=== PATIENT | male | born 1945 | race Caucasian/White ===

== ENCOUNTER 2020-05-02 00:29 | Outpatient (CLI) | payer MEDICARE, SELFPAY ==
[2020-05-02 19:01] LABS: SARS-CoV-2 RNA PCR Negative
== END 2020-05-02 00:30 | disposition home or self-care (01) ==
LOC: ANHCOVIDDT 00:30
PROVIDERS: PCP Nurse Practitioner Family; Visit Provider Internal Medicine Gastroenterology
DX: Z01.818 Encounter for other preprocedural examination (principal); Z11.59 Encounter for screening for other viral diseases
CPT/HCPCS: 87635; C9803; U0003

== ENCOUNTER 2020-05-04 03:21 | Day surgery (SDC) | payer MEDICARE, SELFPAY ==
[2020-04-27 13:26] VITALS: BMI 27.7
--- NOTE | 2020-05-04 06:49 | P.PNAN_ITS ---
Anes - Initial Pre Proc Eval Procedure: Operation Date: 05/04/20 08:00 Proposed Procedures p Screening Colonoscopy - Ameya Mcgarry MD Date/Time: 05/04/20 06:49 Surgeon: Ameya Mcgarry MD Pre Op Diagnosis: Neoplasm Screening Patient Data Age: 74 Gender: M Height: 5 ft 6 in Weight: 78 kg Allergies Allergy/AdvReac Type Severity Reaction Status Date / Time morphine Allergy Mild Confusion Verified 05/01/20 09:20 Home Medications Medication Instructions Recorded Confirmed Type cyclobenzaprine 10 mg tablet 10 mg PO TID 12/14/19 05/01/20 History diclofenac sodium 75 mg 75 mg PO BID 12/14/19 05/01/20 History tablet,delayed release rosuvastatin 10 mg tablet 10 mg PO DAILY 12/14/19 05/01/20 History pregabalin 150 mg PO TID 04/27/20 05/01/20 History Patient hx anesthesia problems: none Family hx anesthesia problems: none [facility] Past Medical History Medical History (Updated 05/04/20 @ 06:49 by Jaison Clayton MD) CAD (coronary artery disease) High cholesterol Surgical History Surgical History History of back surgery x4 pins and rods placed Family History Family History Mother Family history of malignant neoplasm of breast in first degree relative Other Family history of cardiovascular disease Social History Social History Smoking status: Former smoker Smoking end date: 10/19/83 Alcohol intake: current Substance use: never Gender identity (if verbalized by the patient): Male Anes - Eval Final PreProcedure Day of Procedure 05/04/20 06:49 Patient weight: overweight Heart: regular rate and rhythm Lungs: clear to auscultation Airway: Mallampati scale class II Neurological: alert and oriented Last oral intake: >/= 8 hours ASA classification: III Emergent: no Anesthetic plan: proceed Anesthesia type and monitoring: general GIVS and standard monitoring Informed Consent: The patient's anesthetic plan and its attendant risks and benefits were discussed with the patient/family/POA. Questions were solicited and answers provided to the satisfaction of the patient/family/POA.
[2020-05-04] MEDS: LACTATED RINGERS 1,000 ML 150 ML IV CONT (07:11)
[2020-05-04 07:13] VITALS: BP 122/74; PULSE 79; RESP 18; TEMP 36.1; O2SAT 100
--- NOTE | 2020-05-04 07:15 | PM.HPGS ---
History of Present Illness History of Present Illness Consent: Risks, benefits, and alternatives have been discussed and questions answered. Patient agrees to proceed with procedure. Chief complaint: Neoplasm Screening Narrative: Douglas Queen Jr. is a 74 year old male Here for screening colonoscopy. A recent colo guard test was positive PMF Past Medical History Medical History CAD (coronary artery disease) High cholesterol Surgical History Surgical History History of back surgery x4 pins and rods placed Family History Family History Mother Family history of malignant neoplasm of breast in first degree relative Other Family history of cardiovascular disease Social History Social History Smoking status: Former smoker Smoking end date: 10/19/83 Alcohol intake: current Substance use: never Gender identity (if verbalized by the patient): Male Meds Home Medications and Allergies Home Medications Medication Instructions Recorded Confirmed Type cyclobenzaprine 10 mg tablet 10 mg PO TID 12/14/19 05/01/20 History diclofenac sodium 75 mg 75 mg PO BID 12/14/19 05/01/20 History tablet,delayed release rosuvastatin 10 mg tablet 10 mg PO DAILY 12/14/19 05/01/20 History pregabalin 150 mg PO TID 04/27/20 05/01/20 History Allergies Allergy/AdvReac Type Severity Reaction Status Date / Time morphine Allergy Mild Confusion Verified 05/04/20 06:59 Vital Signs Vital Signs - 24 hr 05/04/20 07:13 Pulse Rate 79 Respiratory Rate 18 Blood Pressure 122/74 Pulse Oximetry 100 Exam Resp: Auscultation: clear to auscultation bilaterally Cardio: Rate: regular rate Rhythm: regular rhythm GI: GI Palp: Yes Soft to palpation and No Tenderness to palpation present (GI) Assessment and Plan Assessment and plan (1) Colon cancer screening: Code(s): Z12.11 - Encounter for screening for malignant neoplasm of colon Status: Acute Assessment and Plan: Colonoscopy with possible biopsy or polypectomy or cautery or injection of substances.
[2020-05-04 08:20] VITALS: BP 101/63; PULSE 58; RESP 18; O2SAT 98
[2020-05-04 08:30] VITALS: BP 115/70; PULSE 58; RESP 12; O2SAT 100
[2020-05-04 08:40] VITALS: BP 122/74; PULSE 57; RESP 16; O2SAT 100
== END 2020-05-04 08:47 | disposition home or self-care (01) ==
PROVIDERS: PCP Nurse Practitioner Family; Referring Provider Surgery; Visit Provider Internal Medicine Gastroenterology
PROC: 0DJD8ZZ Inspection of Lower Intestinal Tract, Via Natural or Artificial Opening Endoscopic (ICD-10-PCS; CPT 45378; principal; 2020-05-04 08:00)
DX: Z12.11 Encounter for screening for malignant neoplasm of colon (principal); K57.30 Diverticulosis of large intestine without perforation or abscess without bleeding; K64.8 Other hemorrhoids; R19.5 Other fecal abnormalities; I25.10 Atherosclerotic heart disease of native coronary artery without angina pectoris; E78.00 Pure hypercholesterolemia, unspecified; Z87.891 Personal history of nicotine dependence
CPT/HCPCS: G0121; J2704; J7120

== ENCOUNTER 2020-06-04 00:40 | Outpatient (CLI) | payer MEDICARE, SELFPAY ==
[2020-06-04 20:24] LABS: SARS-CoV-2 RNA PCR Negative
== END 2020-06-04 00:41 | disposition home or self-care (01) ==
LOC: ANHCOVIDDT 00:40
PROVIDERS: PCP Nurse Practitioner Family; Visit Provider Surgery
DX: Z01.812 Encounter for preprocedural laboratory examination (principal); Z20.828 Contact with and (suspected) exposure to other viral communicable diseases
CPT/HCPCS: 87635; C9803; U0003

== ENCOUNTER 2020-06-04 08:09 | Outpatient (CLI) | payer MEDICARE, SELFPAY ==
--- NOTE | 2020-06-04 08:11 | ECG_ITS ---
Measurements Intervals [place] Rate: 67 P: 40 FL: 151 QRS: 1 QRSD: 98 T: 26 QT: 375 QTc: 398 Interpretive Statements SINUS RHYTHM DELAYED PRECORDIAL R/S TRANSITION BORDERLINE ECG Electronically Signed On 06-04-2020 8:51:52 CDT by Ramon Newberry D.O.
== END 2020-06-04 08:10 | disposition home or self-care (01) ==
PROVIDERS: PCP Nurse Practitioner Family; Visit Provider Surgery
DX: E78.00 Pure hypercholesterolemia, unspecified (principal); K40.20 Bilateral inguinal hernia, without obstruction or gangrene, not specified as recurrent; Z01.812 Encounter for preprocedural laboratory examination; R94.31 Abnormal electrocardiogram [ECG] [EKG]
CPT/HCPCS: 36415; 86850; 86900; 86901; 87635; 93005; C9803; U0003

== ENCOUNTER 2020-06-06 00:16 | Day surgery (SDC) | payer MEDICARE, SELFPAY ==
[2020-05-16 11:04] VITALS: BMI 26.6
[2020-05-29 09:32] VITALS: BMI 26.6
[2020-06-06] VITALS (9 sets, daily range): BP systolic 127–138; BP diastolic 67–82; PULSE 59–80; RESP 12–18; TEMP 36.1–36.3; O2SAT 92–100
--- NOTE | 2020-06-06 10:58 | WPDANESEPPF ---
Anes - Initial Pre Proc Eval Procedure: Operation Date: 06/06/20 12:15 Proposed Procedures p Laparoscopic Bilateral Inguinal Hernia Repair With Mesh - Da Alvarado MD Date/Time: 06/06/20 10:58 Surgeon: Da Alvarado MD Pre Op Diagnosis: Bilateral Inguinal Hernia Patient Data Age: 74 Gender: M Height: 5 ft 7 in Weight: 75.3 kg Last Vital Signs Temp 97.2 F L 06/06/20 10:36 Pulse 59 L 06/06/20 10:36 Resp 14 06/06/20 10:36 BP 136/68 06/06/20 10:36 Pulse Ox 100 06/06/20 10:36 Allergies Allergy/AdvReac Type Severity Reaction Status Date / Time morphine Allergy Mild Confusion Verified 06/06/20 10:40 Home Medications Medication Instructions Recorded Confirmed Type cyclobenzaprine 10 mg tablet 10 mg PO TID 12/14/19 05/29/20 History diclofenac sodium 75 mg 75 mg PO BID 12/14/19 05/29/20 History tablet,delayed release rosuvastatin 10 mg tablet 10 mg PO DAILY 12/14/19 05/29/20 History pregabalin 150 mg PO TID 04/27/20 05/29/20 History aspirin [Adult Low Dose Aspirin] 81 mg PO DAILY 05/04/20 05/29/20 History biotin 2,500 mcg PO DAILY 05/16/20 05/29/20 History cholecalciferol (vitamin D3) 75 mcg PO BID 05/16/20 05/29/20 History cyanocobalamin (vitamin B-12) 1,000 mcg PO DAILY 05/16/20 05/29/20 History folic acid 1 mg PO DAILY 05/16/20 05/29/20 History garlic 1,000 mg PO DAILY 05/16/20 05/29/20 History multivitamin,wa-fdbp-nicokrxk 1 tablet PO DAILY 05/16/20 05/29/20 History [Complete Multivitamin] Patient hx anesthesia problems: none Family hx anesthesia problems: none PMFSH Past Medical History Medical History (Updated 06/06/20 @ 10:58 by Rodrick Somers MD) Arthritis CAD (coronary artery disease) has one stent in place High cholesterol Hyperlipidemia Peripheral neuropathy Surgical History Surgical History History of back surgery x4 pins and rods placed Social History Social History Smoking packs per day: 1 Smoking cigarettes per day: 20.0 Years smoked: 10 Smoking pack-years: 10.00 Smoking status: Former smoker Tobacco type: cigarettes Smoking end date: 10/19/83 Alcohol intake: current Drinks per week: 14 Alcohol use details: 2 BEERS DAILY Substance use: never Living arrangements: alone Gender identity (if verbalized by the patient): Male Spiritual care concerns: No Anes - Eval Final PreProcedure Day of Procedure 06/06/20 10:58 Patient weight: normal Heart: regular rate and rhythm Lungs: clear to auscultation Airway: Mallampati scale class III Neurological: alert and oriented Last oral intake: >/= 8 hours ASA classification: III Emergent: no Anesthetic plan: proceed Anesthesia type and monitoring: general LMA and standard monitoring Informed Consent: The patient's anesthetic plan and its attendant risks and benefits were discussed with the patient/family/POA. Questions were solicited and answers provided to the satisfaction of the patient/family/POA.
--- NOTE | 2020-06-06 11:00 | PM.HPGS ---
History of Present Illness History of Present Illness Consent: Risks, benefits, and alternatives of a laparoscopic totally extraperitoneal bilateral inguinal hernia repair have been discussed and questions answered. Patient agrees to proceed with procedure. Chief complaint: Bilateral Inguinal Hernia Narrative: Douglas Queen Jr. is a 74 year old male with a known right inguinal hernia. He was last seen in 12-14-19. He reports this is not painful but it has gotten larger and is more annoying. He reports that the right is worse then the left. He reports that when he does light work it causes a pulling pain. He is currently taking Miralax once a day and typically having good bowel movements. He denies problems with urination. He denies severe pain, fever, chills, or signs of incarceration. He reports the hernia does reduce once he lays down. He is now seen for surgical evaluation. Review of Systems Constitutional: Constitutional: Reports no additional constitutional complaints, Reports fatigue and Denies malaise Eyes: Eyes: Denies change in vision and Denies loss of vision ENT: Reports Normal hearing present, Denies change in voice, Denies dizziness, Denies hoarseness and Denies sore throat Cardiovascular: Cardiovascular: Denies chest pain, Denies leg edema and Denies dyspnea Respiratory: Respiratory: Denies cough, Denies dyspnea and Denies wheezing Gastrointestinal: Gastrointestinal: Denies hematochezia, Denies change in bowel habits, Denies heartburn and Reports other ( Bulging bilaterally in the inguinal areas) Genitourinary: Genitourinary: Denies urinary frequency and Denies urinary incontinence Neurologic: Reports Normal hearing present, Denies confusion, Denies dizziness, Denies loss of vision, Denies memory loss and Denies seizure-like activity Psychiatric: Psychiatric: Denies confusion, Denies depression and Denies memory loss Endocrine: Endocrine: Denies cold intolerance and Reports fatigue Hematologic/Lymphatic: Hematologic/Lymphatic: Denies easy bleeding and Denies easy bruising Allergic/Immunologic: Allergic/Immunologic: Denies wheezing PMFSH Past Medical History Medical History Arthritis CAD (coronary artery disease) has one stent in place High cholesterol Hyperlipidemia Peripheral neuropathy Surgical History Surgical History History of back surgery x4 pins and rods placed Family History Family History Mother Family history of malignant neoplasm of breast in first degree relative Other Family history of cardiovascular disease Social History Social History Smoking packs per day: 1 Smoking cigarettes per day: 20.0 Years smoked: 10 Smoking pack-years: 10.00 Smoking status: Former smoker Tobacco type: cigarettes Smoking end date: 10/19/83 Alcohol intake: current Drinks per week: 14 Alcohol use details: 2 BEERS DAILY Substance use: never Living arrangements: alone Gender identity (if verbalized by the patient): Male Spiritual care concerns: No Meds Home Medications and Allergies Home Medications Medication Instructions Recorded Confirmed Type cyclobenzaprine 10 mg tablet 10 mg PO HS 12/14/19 06/06/20 History diclofenac sodium 75 mg 75 mg PO BID 12/14/19 06/06/20 History tablet,delayed release rosuvastatin 10 mg tablet 10 mg PO DAILY 12/14/19 06/06/20 History pregabalin 150 mg PO TID 04/27/20 06/06/20 History aspirin [Adult Low Dose Aspirin] 81 mg PO DAILY 05/04/20 06/06/20 History biotin 2,500 mcg PO DAILY 05/16/20 06/06/20 History cholecalciferol (vitamin D3) 75 mcg PO BID 05/16/20 06/06/20 History cyanocobalamin (vitamin B-12) 1,000 mcg PO DAILY 05/16/20 06/06/20 History folic acid 1 mg PO DAILY 05/16/20 06/06/20 History garlic 1,000 m
[2020-06-06] MEDS: ACETAMINOPHEN 500 MG TABLET 1000 MG PO (11:01)
[2020-06-06] MEDS: LACTATED RINGERS 1,000 ML 30 ML IV CONT ×2 (11:21→15:05)
[2020-06-06] MEDS: KETOROLAC 15 MG/ML VIAL (*BKC) IV PUSH (11:21)
[2020-06-06] MEDS: BUPIVACAINE/EPINEPHRINE 0.5% 30 ML VIAL INFILTRATE (12:34)
[2020-06-06] MEDS: ceFAZolin 2 GM/D5W 50 ML 2 GM/50 ML BAG IVPB (12:34)
--- NOTE | 2020-06-06 14:41 | SUR.OPER ---
URINE:200cc
--- NOTE | 2020-06-06 14:51 | SUR.OPER ---
EBL:10cc
--- NOTE | 2020-06-06 14:58 | PM.PROC ---
Procedure Note - Detailed Date of procedure: 06/06/20 Pre-op diagnosis: Bilateral Inguinal Hernia Post-op diagnosis: other (Bilateral direct inguinal hernias) Procedure performed: totally extraperitoneal bilateral inguinal hernia repair with mesh Description of procedure: After appropriate marking of the operative site prior to surgery, the patient was taken to the operating room. After induction of adequate general endotracheal anesthesia by [facility] staff, the patient was carefully prepped and draped in a sterile fashion. Prior to the prep and drape a Bhatt catheter was placed. A timeout was performed confirming the procedure and site of surgery on the bilateral inguinal hernias. Following this, local anesthetic was infiltrated into the umbilical area and a vertical incision was made just below the umbilicus. I carefully dissected down to the the anterior rectus sheath on the right and then made a 1 cm vertical slit in the fascia just off the midline. The rectus muscle was retracted to right and then just in front of the posterior rectus sheath, a dissecting balloon was passed onto the pubic bone. Without applying any pressure on the groin areas, this was insufflated with 40 pumps, while watching with the 0 degree laparoscope. It appeared that I was in the proper plane. Following this, the dissecting balloon was removed and the doughnut shaped conforming balloon was inflated with 40 cc of air and pulled back and the ring secured at the umbilicus to allow for insufflation of CO2 gas. Following this, the 0 degree laparoscope was used to carefully place two 5mm trocars in the midline. One suprapubic and other one nursing home between the umbilicus and the pubic bone. Tedious dissection then occurred in the preperitoneal space exposing the Juventino's ligament, the cord structures, the muscular tissue anteriorly, and the retroperitoneum on both sides. On both sides we saw that there were direct hernias which had pseudo sacs. These were dissected out and tacked to the anterior abdominal wall by pulling them toward the midline and using the secure tack absorbable stapler. Retroperitoneum was dissected back to the level of the umbilicus both anteriorly and posteriorly I did get a small hole in the peritoneum on the patient's right. This was then able to be dissected back and we could visualize the posterior peritoneum. I then dissected up to the level of the umbilicus and it was ready for mesh placement. After carefully confirming all sites and that the mesh would cover the direct space, I carefully rolled the Left 3D Max mesh and slid this through the 12 mm trocar at the umbilical level down into the preperitoneal space. This unfurled nicely and sat nicely against the left groin structures. It nicely covered all spaces and it went back nicely into the preperitoneal space along the anterior-superior iliac spine. I took a picture of it carefully, which showed that the mesh will cover the preperitoneal groin well, and had come down to the posterior border of the peritoneum. Following this the same procedure was done on the patient's right after told him slightly toward the left. The 2 pieces of mesh were found to overlap a little bit in the midline over the pubic bone which was okay with me. On each side 2 tacks were placed into Juventino's ligament. No tacks were placed anteriorly on the left 1 tack was placed between through the mesh into the anterior abdominal wall musculature both medial and lateral to the epigastric vessels on the right. Following this we took another picture looking straight into the pelvis which showed both pieces of mesh nicely aligned against the groin areas covering all 3 spaces on each side including the indirect direct and femoral spaces. Once this was accomplished, I took the patient out of Trendelenburg position, rotated the patient back even, and then observed using a dissector through the higher 5 mm trocar to keep the mesh pushe
== END 2020-06-06 17:46 | disposition home or self-care (01) ==
PROVIDERS: PCP Nurse Practitioner Family; Visit Provider Surgery
PROC: (CPT 49650; principal; 2020-06-06 12:15)
DX: K40.20 Bilateral inguinal hernia, without obstruction or gangrene, not specified as recurrent (principal); I25.10 Atherosclerotic heart disease of native coronary artery without angina pectoris; E78.00 Pure hypercholesterolemia, unspecified; E78.5 Hyperlipidemia, unspecified; G62.9 Polyneuropathy, unspecified; Z79.82 Long term (current) use of aspirin; Z87.891 Personal history of nicotine dependence
CPT/HCPCS: 49505; A9270; C1727; C1781; J0690; J1100; J1885; J2250; J2370; J2405; J2704; J2710; J3010; J7120

== ENCOUNTER 2022-09-09 09:19 | Outpatient (CLI) | payer MEDICARE, SELFPAY ==
--- NOTE | 2022-09-09 | ECG_ITS ---
Measurements Intervals [place] Rate: 69 P: 43 MO: 146 QRS: -9 QRSD: 95 T: 12 QT: 367 QTc: 393 Interpretive Statements SINUS RHYTHM NORMAL ECG COMPARED TO ECG 06/04/2020 08:45:36 NO SIGNIFICANT CHANGES Electronically Signed On 09-09-2022 14:01:17 [employer] by Ramon Newberry D.O.
[2022-09-09 09:52] LABS: Hematocrit 38.3 % (42.0-52.0); Hemoglobin 12.5 g/dL (14.0-18.0)
[2022-09-09 10:02] LABS: Urine Cotinine NEGATIVE
[2022-09-09 10:04] LABS: Albumin Level 4.3 g/dL (3.5-5.1); Estimated Glomerular Filt Rate > 60; Glucose 92 mg/dL (65-110)
[2022-09-09 10:41] LABS: Hemoglobin A1C 5.5 % (<5.7)
== END 2022-09-09 09:20 | disposition home or self-care (01) ==
LOC: ANHLAB 09:24
PROVIDERS: PCP Nurse Practitioner Family; Visit Provider Orthopaedic Surgery
DX: E78.5 Hyperlipidemia, unspecified (principal); I25.10 Atherosclerotic heart disease of native coronary artery without angina pectoris; Z79.899 Other long term (current) drug therapy
CPT/HCPCS: 80307; 82040; 82565; 82947; 83036; 85014; 85018; 93005

== ENCOUNTER 2022-09-15 15:58 | Outpatient (CLI) | payer MEDICARE, SELFPAY ==
--- NOTE | ~2022-09-15 | CT_ITS ---
CORRECTED REPORT ADDED CT LE LT wo con to examination This report was recreated on 09/18/2022. Original report was CHECKER 09/18/2022 [facility] EXAMINATION: CT LE RT wo con and CT LE LT wo con DATE: 09/15/2022 17:20 INDICATION: Right knee osteoarthritis. TECHNIQUE: Computed tomography (CT) of the right lower limb was performed without intravenous contrast. Automated exposure control and iterative reconstruction technique were employed. The dose-length product was 1854.74 mGy- cm. COMPARISON: Right knee radiographs 09/05/2022 FINDINGS: There is moderate right hip osteoarthritis. The right knee demonstrates severe osteoarthritis of the medial compartment, mild osteoarthritis of lateral compartment, and moderate osteoarthritis of the patellofemoral compartment. There is a small knee joint effusion. There is a moderate-sized Rushing's cyst with loose bodies. There is an osteochondroma of the posterior medial aspect of proximal tibia directed inferiorly measuring 4.8 x 1.5 x 2.1 cm. There is moderate left hip osteoarthritis. Left knee demonstrates severe osteoarthritis of the lateral compartment and moderate osteoarthritis of medial and patellofemoral compartments. There is a moderate-sized knee joint effusion with loose bodies. There are loose bodies in the popliteus recess. There is a large Rushing's cyst with loose bodies. IMPRESSION: 1. 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 2. 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 3. Moderate-sized left knee joint effusion with loose bodies. 4. 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 Reviewed, dictated and finalized at location A. CHECKER MTDD
== END 2022-09-15 15:59 | disposition home or self-care (01) ==
PROVIDERS: PCP Nurse Practitioner Family; Visit Provider Orthopaedic Surgery
DX: M17.11 Unilateral primary osteoarthritis, right knee (principal); M25.461 Effusion, right knee; M23.41 Loose body in knee, right knee; M71.21 Synovial cyst of popliteal space [Baker], right knee
CPT/HCPCS: 73700

== ENCOUNTER 2022-11-05 11:29 | Outpatient (CLI) | payer MEDICARE, SELFPAY ==
[2022-11-05 13:06] LABS: Basophils Absolute Auto 0.1 K/mm3 (0.0-0.1); Basophils Percent Auto 1.2 % (0.2-1.2); Eosinophils Absolute Auto 0.5 K/mm3 (0-0.3); Eosinophils Percent Auto 7.5 % (0-4.4); Hematocrit 40.8 % (42.0-52.0); Hemoglobin 13.2 g/dL (14.0-18.0); Immature Granulocyte Absolute 0.01 K/mm3 (0.00-0.031); Immature Granulocyte Percent A 0.2 % (0-0.5); Lymphocytes Percent Auto 26.2 % (18.3-44.2); Mean Corpuscular HGB Conc 32.4 g/dl (32-36); Mean Corpuscular Hemoglobin 30.4 pg (26-34); Mean Platelet Volume 10.3 fl (7.4-10.4); Monocytes Absolute Auto 0.6 K/mm3 (0.1-0.6); Monocytes Percent Auto 8.9 % (2.6-8.5); Neutrophils Absolute Auto 3.6 K/mm3 (1.3-6.7); Platelet Count Result 221 k/mm3 (150-375); Red Blood Count 4.34 M/mm3 (4.6-6.20); Red Cell Distribution Width 13.9 % (11.5-14.5); White Blood Count 6.5 K/mm3 (4.5-10.0)
[2022-11-05 13:13] LABS: Urine Cotinine NEGATIVE
[2022-11-05 13:14] LABS: Albumin Level 4.8 g/dL (3.5-5.1); Estimated Glomerular Filt Rate 49; Glucose 93 mg/dL (65-110)
== END 2022-11-05 11:30 | disposition home or self-care (01) ==
PROVIDERS: PCP Nurse Practitioner Family; Visit Provider Orthopaedic Surgery
DX: M17.11 Unilateral primary osteoarthritis, right knee (principal); Z01.818 Encounter for other preprocedural examination
CPT/HCPCS: 80307; 82040; 82565; 82947; 85025; 87081

== ENCOUNTER 2022-12-02 15:07 | Observation (INO) | payer MEDICARE, SELFPAY ==
[2022-11-05 11:48] VITALS: BP 157/78; PULSE 65; RESP 16; TEMP 36.8; O2SAT 95; BMI 29.1
--- NOTE | 2022-11-05 12:04 | PC.NURSE ---
Report to the Outpatient Waiting Room, entrance under the green pavilion located off [facility], at time __10:00AM on date __12/01/22 . Planned Procedure Time: __12:00PM . Time changes happen often and if your time is changed the preop area will call you the afternoon before. - You and your visitor will be asked to self-screen and do not enter if you have any COVID symptoms. - Only one visitor is requested with a max of two and NO children visitors are allowed at this time. - The patient visitor may be requested to leave or wait in car when not with patient due to distancing restrictions. - A mask is optional within the hospital. Patients may have clear liquids (water, carbonated beverages, clear teas, apple juice) until 3 hours prior to surgery with a maximum of 20 ounces. - No food from midnight until time of surgery Take the following medications with a SIP of water the morning of surgery: ___PREGABALIN, TIZANIDINE, TRAMADOL- ALL NEEDED___ Medications to discontinue per physician __HOLD DICLOFENAC- 7 DAYS PRE-OP- LAST DOSE-11/24/22, HOLD ALL VITAMINS/SUPPLEMENTS -3 DAYS 11/27/22_ Please no make-up, nail samoan, hairspray, perfume, deodorant, or body powder the day of surgery. No jewelry (including any body piercings) or valuables the day of surgery, leave them at home. Please take a shower or bath the night before, or the morning of, surgery with an antibacterial soap. Wear comfortable, loose fitting clothing. Children are encouraged to wear pajamas. - Jewelry must be removed prior to entering the operating room. Rings and piercings that are not removed may be cut off. - The hospital will not accept responsibility for valuables. - Please leave all valuables, including medications, at home the day of surgery. If you are going home after surgery, a licensed grain combine driver must drive you home. - NO public transportation without another adult if you receive anesthesia. - We recommend that an adult stay with you for 24 hours following discharge. - We also recommend that you do not drive, make important decision, drink alcoholic beverages, or take any drugs that were not prescribed by your health care provider for at least 24 hours after your discharge time. Follow any additional instructions given to you from your surgeon. If you or anyone in your household have experienced Covid symptoms in the past week, please notify your surgeon or the nurse liaison at the phone number below for possible testing. Telephone instructions given to __PATIENT and asked if any additional questions and then verbalized understanding. Patient advised to call surgeon office or pre surgery nurse liaison [phone] if any additional questions.
[2022-12-01] VITALS (13 sets, daily range): BP systolic 111–146; BP diastolic 62–90; PULSE 83–108; RESP 10–20; TEMP 36.1–36.6; O2SAT 92–100
[2022-12-01] MEDS: ACETAMINOPHEN 500 MG TABLET 1000 MG PO (09:58)
[2022-12-01] MEDS: LACTATED RINGERS 1,000 ML 30 ML IV CONT ×2 (11:10→15:00)
--- NOTE | 2022-12-01 11:24 | WPDANESEPPF ---
Anes - Initial Pre Proc Eval Procedure: Operation Date: 12/01/22 12:00 Proposed Procedures p Right Custom Total Knee Arthroplasty - Norberto Craft MD Date/Time: 12/01/22 11:24 Surgeon: Norberto Craft MD Pre Op Diagnosis: Prim OA Right Knee Patient Data Age: 77 Gender: M Height: 1.68 m Weight: 78.1 kg Last Vital Signs Temp 36.6 C 12/01/22 11:03 Pulse 84 12/01/22 11:03 Resp 16 12/01/22 11:03 BP 139/74 12/01/22 11:03 Pulse Ox 98 12/01/22 11:03 O2 Del Method Room Air 12/01/22 11:03 Allergies Allergy/AdvReac Type Severity Reaction Status Date / Time morphine AdvReac Mild Confusion Verified 12/01/22 09:52 Home Medications Medication Instructions Recorded Confirmed Type diclofenac sodium 75 mg 75 mg PO BID 12/14/19 12/01/22 History tablet,delayed release rosuvastatin 10 mg tablet (Crestor) 10 mg PO DAILY 12/14/19 12/01/22 History hydroxychloroquine 200 mg tablet 200 mg PO BID 08/19/22 12/01/22 History aspirin 81 mg tablet,delayed 81 mg PO DAILY 11/05/22 12/01/22 History release cholecalciferol (vitamin D3) 125 125 mcg PO DAILY 11/05/22 12/01/22 History mcg (5,000 unit) capsule magnesium oxide 420 mg tablet 420 mg PO BID 11/05/22 12/01/22 History pregabalin 300 mg capsule 300 mg PO BID 11/05/22 12/01/22 History tizanidine 4 mg capsule 4 mg PO Q8H PRN Pain 11/05/22 12/01/22 History tramadol 50 mg tablet 50 mg PO Q12-24H PRN Pain 11/05/22 12/01/22 History zinc 25 mg tablet 25 mg PO DAILY 11/05/22 12/01/22 History Patient hx anesthesia problems: none Family hx anesthesia problems: none Results Review: All pre-operative results and documents have been reviewed as part of the pre-operative evaluation. [facility] Past Medical History Medical History Arthritis (Unknown) CAD (coronary artery disease) has one stent in place High cholesterol Hyperlipidemia (Unknown) Lumbar spondylosis with myelopathy Peripheral neuropathy Rheumatoid arthritis Surgical History Surgical History H/O hernia repair 06/06/2020 History of back surgery x4 pins and rods placed Family History Family History Mother Family history of malignant neoplasm of breast in first degree relative Other Family history of cardiovascular disease Social History Social History Smoking packs per day: 1 Smoking cigarettes per day: 20.0 Years smoked: 19 Smoking pack-years: 19.00 Smoking status: Former smoker Tobacco type: cigarettes Smoking end date: 04/18/85 Alcohol intake: current Drinks per week: 14 Alcohol use details: 2 BEERS DAILY Substance use: never Lack of Transportation: No Lack of Food: Never True Current Housing: I Have Housing Concerned About Future Housing: No Difficulty Paying Gas/Electric Bills: No Difficulty Paying for Meds: No Currently Unemployed: No Education: Associate Degree Difficulty w/ Childcare or Family Care: YES Living arrangements: alone Occupation/Education: retired Gender identity (if verbalized by the patient): Male Spiritual care concerns: No Anes - Eval Final PreProcedure Day of Procedure 12/01/22 11:24 Patient weight: overweight Heart: regular rate and rhythm Lungs: clear to auscultation Airway: Mallampati scale class II Neurological: alert and oriented Last oral intake: >/= 8 hours ASA classification: III Emergent: no Anesthetic plan: proceed Anesthesia type and monitoring: general LMA and standard monitoring Results Review: All pre-operative results and documents have been reviewed as part of the pre-operative evaluation. Informed Consent: The patient's anesthetic plan and its attendant risks and benefits were discussed with the patient/family/POA. Questions were solicited and answer
--- NOTE | 2022-12-01 11:49 | WPDHPUPDATE1 ---
History and Physical Update Update Date/Time: 12/01/22 11:49 History and Physical has been reviewed, including an updated exam of the patient. There are NO changes in the patient's condition. Risks, benefits, and alternatives have been discussed and questions answered. Patient agrees to proceed with procedure.
--- NOTE | 2022-12-01 12:06 | WPDANESPNB ---
Anes - Peripheral Nerve Block Date/Time: 12/01/22 12:06 I have discussed with the patient/family/POA the placement of a peripheral nerve block for post-operative pain management, including associated risks, benefits, complications, and side effects. Alternative methods of post-operative analgesia were detailed. Questions were solicited and answers provided to the satisfaction of the patient/family/POA. Time-Out: A pre-procedural Time-Out was completed immediately before starting the procedure and confirmed: Patient Identification, Site, Procedure, Patient Position and the Availability of Requisite Equipment. Clinical Indications: Acute post-operative pain management requested by the operative surgeon. Nerve Block Insertion Note Anes-nerve block: femoral right Patient position: supine Skin prep: chlorhexidine Needle: 22 gauge, stimulating, insulated echogenic needle. Needle length: 50 mm Technique: nerve stimulation lost at (mA) (0.35) Injectate: bupivacaine 0.5% with epi 5 mcg/ml (20 cc) Observations: tolerated well Complications: none Procedure start time:: 1200 Procedure end time:: 1204
[2022-12-01] MEDS: ceFAZolin 2 GM/D5W 50 ML 2 GM/50 ML BAG IVPB ×2 (12:09→20:19)
[2022-12-01] MEDS: GENTAMICIN BONE CEMENT REFOBACIN 1 EACH TOPICAL (14:03)
[2022-12-01] MEDS: fentaNYL CITRATE INJ (*CRX) 100 MCG/2 ML VIAL 25 MCG IV PUSH ×2 (16:04→16:06)
--- NOTE | 2022-12-01 17:17 | P.OP_ITS ---
Procedure Note - Detailed Date of Procedure 12/01/22 Pre-op Diagnosis Degenerative arthritis right knee. Post-op Diagnosis Same Procedure Performed Total knee arthroplasty, right knee Surgeon Norberto Craft MD [employer] Control Systems Engineer Sherry Darby PA-C Anesthesia General and Regional (Subsartorial block.) Findings Advanced degenerative changes in all 3 compartments most pronounced medially. Significant medial contracture with moderate medial release required. Bone resections according to the preoperative planning software. Description of Procedure Preoperative antibiotics were given. The limb was prepped and draped in the usual sterile fashion with a well-padded tourniquet high on the thigh. The limb was exsanguinated and the tourniquet inflated to 300 mmHg. A longitudinal incision was created just medial to the patella. A trivector approach to the knee was performed. Arthrotomy was taken down through the joint capsule. No significant releases were initially taken. The femur was exposed and the F1 jig was applied. The coring tool was used to remove the cartilage for the F2 jig to sit flush with the bone. The jig was pinned and the distal cut carefully taken. Caliper measurements confirmed appropriate bony resections according to the preoperative templated plan. The F4 cutting jig for the femur was applied, at the standard rotation. The AP and anterior chamfer cuts were taken. The F5 jig was applied and the posterior chamfer cuts were taken. The box cut was next performed. The anterior and posterior cruciate ligaments were resected. The tibia was prepared using the T1 jig, after removing cartilage for the jig contact points. Proper alignment was checked with the alignment zenobia. The tibia was cut using the T1u guide. Gap balancing was performed. Gap measurements were taken and the knee was trialed. Excellent alignment and soft tissue balancing was confirmed. The patella was quite healthy in appearance. Small periferal osteophytes were removed. Meniscal remnants were removed. The trial components were assembled. Excellent range of motion and proper soft tissue balancing were confirmed throughout the full range of motion. Patellar tracking was excellent. The knee was copiously irrigated periodically throughout the procedure. The real implants were cemented into position. Excess cement was carefully removed. The wound was closed in layers with interrupted #1 Vicryl suture, 2-0 strata fix suture, 0 strata fix suture, 2-0 strata fix suture. Steri-Strips placed on the skin with the knee flexed. Sterile bulky dressing applied. The patient was brought to the recovery room in stable condition. There were no complications. Physician certified registered dental assistant, Sherry Darby PA-C, required for surgery; including patient positioning, draping, tissue retraction, maintaining instrument position, cement removal, wound closure, and dressing placement. Implants Conformis Imprint total knee arthroplasty. Cemented. Posterior stabilized. 10mm insert. Estimated Blood Loss -50.0 Tourniquet Time 80 Drains No Complications No immediate complications Condition Stable Disposition PACU [facility] Billing Surgery - Charge Forward: Surgery Billing
[2022-12-01] MEDS: SODIUM CHLORIDE 0.9% IV 1,000 ML 125 ML IV CONT (17:55)
[2022-12-01] MEDS: DICLOFENAC SOD 75 MG TABLET.EC PO (17:56)
[2022-12-01] MEDS: SENNA/DOCUSATE SODIUM TABLET 2 TAB PO (17:56)
[2022-12-01] MEDS: HYDROXYCHLOROQUINE SULFATE 200 MG TABLET PO (17:56)
[2022-12-01] MEDS: ASPIRIN 81 MG ENTERIC TABLET PO (17:57)
[2022-12-01] MEDS: oxyCODONE HCL (*CRX) 5 MG TAB IR 10 MG PO (18:16)
[2022-12-01] MEDS: MAGNESIUM OXIDE 400 MG TABLET PO (20:19)
[2022-12-01] MEDS: PREGABALIN (*CRX) 75 MG CAPSULE 300 MG PO (21:58)
--- NOTE | ~2022-12-02 | XR_ITS ---
EXAMINATION: XR knee RT 2V DATE: 12/01/2022 15:11 INDICATION: Total right knee arthroplasty. Postop. TECHNIQUE: 2 views of right knee were obtained. COMPARISON: Right knee radiographs 12/07/2012 FINDINGS: There is a total right knee arthroplasty without patellar resurfacing in near-anatomic alig nment. No fracture. There is a tiny osteophyte of the patella. There is gas in the knee joint and sof t tissues, consistent with recent surgery. IMPRESSION: 1. Total right knee arthroplasty in near-anatomic alignment. Reviewed, dictated and finalized at location A. UMER MARKETING MANAGER
[2022-12-02] MEDS: ceFAZolin 2 GM/D5W 50 ML 2 GM/50 ML BAG IVPB ×2 (03:18→12:46)
[2022-12-02 03:21] VITALS: BP 123/59; PULSE 83; RESP 18; TEMP 36.4; O2SAT 96
[2022-12-02 06:17] LABS: Basophils Percent Auto 0.4 % (0.2-1.2); Hematocrit 27.1 % (42.0-52.0); Immature Granulocyte Absolute 0.06 K/mm3 (0.00-0.031); Immature Granulocyte Percent A 0.5 % (0-0.5); Lymphocytes Absolute Auto 0.94 K/mm3 (0.9-3.2); Lymphocytes Percent Auto 8.6 % (18.3-44.2); Mean Corpuscular HGB Conc 33.2 g/dl (32-36); Mean Corpuscular Hemoglobin 30.4 pg (26-34); Mean Corpuscular Volume 91.6 fl (80-100); Monocytes Percent Auto 9.2 % (2.6-8.5); Neutrophils Absolute Auto 8.9 K/mm3 (1.3-6.7); Neutrophils Percent Auto 81.3 % (45.5-73.1); Platelet Count Result 238 k/mm3 (150-375); Red Blood Count 2.96 M/mm3 (4.6-6.20); Red Cell Distribution Width 14.5 % (11.5-14.5)
[2022-12-02 06:37] LABS: Anion Gap 4 mmol/L (8-16); Blood Urea Nitrogen 21 mg/dL (9-20); Calcium 7.6 mg/dL (8.4-10.2); Carbon Dioxide 27 mmol/L (22-30); Chloride 106 mmol/L (98-107); Estimated CRCL calculation 50 ml/min; Estimated Glomerular Filt Rate > 60; Glucose 136 mg/dL (65-110); Potassium 3.6 mmol/L (3.4-5.0); Sodium 137 mmol/L (137-145)
[2022-12-02] MEDS: DICLOFENAC SOD 75 MG TABLET.EC PO ×2 (08:18→17:59)
[2022-12-02] MEDS: HYDROXYCHLOROQUINE SULFATE 200 MG TABLET PO ×2 (08:19→17:59)
[2022-12-02] MEDS: ASPIRIN 81 MG ENTERIC TABLET PO ×2 (08:19→17:59)
[2022-12-02] MEDS: MAGNESIUM OXIDE 400 MG TABLET PO ×2 (08:19→17:58)
[2022-12-02] MEDS: CHOLECALCIFEROL 1,000 UNITS TABLET 5000 UNITS PO (08:19)
[2022-12-02] MEDS: predniSONE 5 MG TABLET PO (08:19)
[2022-12-02] MEDS: polyethylene glycoL 3350 17 GM POWD.PACK PO (08:20)
[2022-12-02] MEDS: oxyCODONE HCL (*CRX) 5 MG TAB IR 10 MG PO ×4 (08:21→22:36)
[2022-12-02] MEDS: ONDANSETRON INJ 4 MG/2 ML VIAL IV PUSH ×2 (09:15→17:58)
[2022-12-02 10:15] VITALS: BP 113/60; PULSE 89; RESP 18; TEMP 36.3; O2SAT 99
[2022-12-02] MEDS: PREGABALIN (*CRX) 75 MG CAPSULE 300 MG PO ×2 (10:44→20:33)
[2022-12-02] MEDS: SENNA/DOCUSATE SODIUM TABLET 2 TAB PO ×2 (10:45→18:03)
--- NOTE | 2022-12-02 13:20 | P.PNAN_ITS ---
Anes - Prog Note Post-Op Date/Time: 12/02/22 13:20 Cardiovascular status: normal Respiratory status: normal Airway patency: baseline Mental status: baseline Post-Op hydration status: normal Vital Signs: Last Vital Signs Temp 36.3 C L 12/02/22 10:15 Pulse 89 12/02/22 10:15 Resp 18 12/02/22 10:15 BP 113/60 12/02/22 10:15 Pulse Ox 99 12/02/22 10:15 O2 Del Method Room Air 12/02/22 08:58 O2 Flow Rate 2 12/01/22 16:35 Pain Score (VAS): 12/26 I/O: Intake & Output 12/01/22 12/02/22 12/02/22 23:59 07:59 15:59 Intake Total 1000 50 480 Output Total 300 200 Balance 700 -150 480 Laboratory Tests 12/02/22 05:48 12/02/22 05:48 12/01/22 12/02/22 12/02/22 10:45 05:48 05:48 WBC 11.0 H RBC 2.96 L Hgb 9.0 L D Hct 27.1 L MCV 91.6 MCH 30.4 MCHC 33.2 RDW 14.5 Plt Count 238 MPV 10.0 Immature Gran % (Auto) 0.5 Neut % (Auto) 81.3 H Lymph % (Auto) 8.[address] [place] % (Auto) 9.2 H Eos % (Auto) 0.0 Baso % (Auto) 0.4 Lymph # (Auto) 0.94 [place] # (Auto) 1.0 H Eos # (Auto) 0.0 Baso # (Auto) 0.0 Abs Immat Gran (auto) 0.06 H Absolute Neuts (auto) 8.9 H Absolute Nucleated RBC 0.0 Nucleated RBC % 0.0 Sodium 137 Potassium 3.6 Chloride 106 Carbon Dioxide 27 Anion Gap 4 L BUN 21 H Creatinine 1.00 Estim Creat Clear Calc 50 Estimated GFR > 60 Glucose 136 H Calcium 7.6 L Antibody Screen Negative Post-procedural complaints: none Patient Feedback: Patient satisfied with anesthetic care.
--- NOTE | 2022-12-02 13:52 | PM.DS ---
DS: Admitting Diagnosis Discharge Date 12/03/22 Admitting Diagnosis OA knee Right DS: Discharge Diagnosis Discharge Diagnosis (1) Status post total right knee replacement: Code(s): Z96.651 - Presence of right artificial knee joint Status: Acute Assessment and Plan: Postop day 2: Right total knee arthroplasty. Patient tolerated procedure well. Patient had poor quad strength and was unable to ambulate on his own on post op day 1. He was using a nazanin steady for transfers to and from the bathroom. He saw physical therapy who recommended another day due to him not safely being able to ambulate on his own. He is doing much better today. Block has warn off and he is able to ambulate. He did much better with physical therapy and is now able to ambulate with a walker. Pain manageable with pain medication. No numbness or tingling. We had a lengthy discussion regarding postoperative wound care, limitations, expectations, and exercises. Patient shows good understanding. DVT prophylaxis: 81 mg baby aspirin b.i.d. for 14 days. Pain medication: Percocet. Patient has followup appointment with Dr. Craft in 3 weeks. DS: Summary Hospital Course Reason for hospitalization: Total knee arthroplasty Hospital Course: Patient tolerated procedure well. Has had initial PT/OT. Poor qaud function from block post op day 1 requiring a second day. Doing much better today and is okay for discharge. Pain well managed. Status at Discharge Functional status at discharge: uses cane/walker Overall status at discharge: patient is progressing back to baseline Time Spent with Patient Time attestation: Total time spent providing and/or coordinating discharge services: Exam Narrative: Overweight 77 y/o Male. Resting comfortably in chair. No acute distress. A&O x3. Wearing compression socks bilaterally. Dressing intact with no drainage. Moderate swelling. No ecchymosis. No erythema. No hematoma. Good early range of motion. Good quad function. Able to perform a straight leg raise. Calf nontender. Neurologic status intact. No varicosities. Distal pulses palpable. DS: Data Data Completed and Pending Labs on day of discharge: Labs from last 24 hours 12/02/22 12/02/22 12/01/22 05:48 05:48 10:45 WBC 11.0 H RBC 2.96 L Hgb 9.0 L D Hct 27.1 L MCV 91.6 MCH 30.4 MCHC 33.2 RDW 14.5 Plt Count 238 MPV 10.0 Immature Gran % (Auto) 0.5 Neut % (Auto) 81.3 H Lymph % (Auto) 8.6 L [place] % (Auto) 9.2 H Eos % (Auto) 0.0 Baso % (Auto) 0.4 Lymph # (Auto) 0.94 [place] # (Auto) 1.0 H Eos # (Auto) 0.0 Baso # (Auto) 0.0 Abs Immat Gran (auto) 0.06 H Absolute Neuts (auto) 8.9 H Absolute Nucleated RBC 0.0 Nucleated RBC % 0.0 Sodium 137 Potassium 3.6 Chloride 106 Carbon Dioxide 27 Anion Gap 4 L BUN 21 H Creatinine 1.00 Estim Creat Clear Calc 50 Estimated GFR > 60 Glucose 136 H Calcium 7.6 L Antibody Screen Negative Discharge Plan Discharge Attending physician on discharge: Norberto Craft Discharging Clinician: Sherry Darby Anticipated Discharge Date/Time: 12/03/22 09:53 Patient Disposition: Home, Self-Care Activity: may shower Diet: as tolerated and regular Wound Care Instructions: follow printed instructions Discharge Instructions: See green instruction sheets You should be getting a call from [facility] physical therapy [facility] to set up physical therapy in 2 weeks from surgery. We notified them today. If you do not get a call in the next few days, call our office. Stand Alone Forms: General Discharge Instructions Follow-up/Referrals: Sherry Darby PA [[employer]] - Discharge Medications: New prednisone 5 mg tablet 5 mg PO DAILY 21 Days Qty: 21 0RF aspirin 81 mg tablet,delayed release (DR/EC) 81 mg PO BID 14 Days Qty: 28 0RF
[2022-12-02 14:23] VITALS: BP 110/58; PULSE 95; RESP 18; TEMP 37.2; O2SAT 99
--- NOTE | 2022-12-02 16:29 | PM.PNORT ---
Progress Note: A&P Assessment and Plan (1) Status post total right knee replacement: Code(s): Z96.651 - Presence of right artificial knee joint Status: Acute (2) Numbness of right lower extremity: Code(s): R20.0 - Anesthesia of skin Status: Acute Plan Postop day 1: Right total knee arthroplasty. Patient tolerated procedure well. He has had issues with quad function today. PT has seen him twice and placed concerns that he was not safe for discharge today. Spoke with physical therapist today. Possible discharge tomorrow pending how he does with physical therapy. He feels like his whole leg is numb and jelly. Spoke with nurse who states he is using a serasteady to get to and from the bathroom. Patient complains of increased nausea today as well. Subjective Subjective Date/Time Seen: 12/02/22 16:29 Interval history: Increased pain and Nausea. Notes that his whole leg is numb. Review of Systems Review of Systems: All systems reviewed & are unremarkable except as noted in HPI and below Exam Narrative: Overweight 77 y/o Male. Resting comfortably in bed. Wearing compression socks bilaterally. Dressing intact with no drainage. Moderate swelling. No ecchymosis. No erythema. No hematoma. Range of motion limited due to pain. Calf nontender. Poor Quad function. Activates slightly. Not able to straighten his leg actively. Neurologic status intact. No varicosities. Distal pulses palpable. Objective Data Vital Signs Vital Signs: Vital Signs - 24 hr 12/01/22 16:35 12/01/22 17:10 12/01/22 17:25 Temperature 97.7 F 97.9 F Pulse Rate 95 95 91 Respiratory Rate 12 20 20 Blood Pressure 144/90 H 127/70 129/68 Pulse Oximetry 100 99 100 Oxygen Delivery Nasal Cannula Oxygen Flow Rate 2 12/01/22 18:20 12/01/22 19:51 12/01/22 23:34 Temperature 97.9 F 97.6 F 97.0 F L Pulse Rate 86 88 83 Respiratory Rate 18 18 17 Blood Pressure 127/69 111/62 131/70 Pulse Oximetry 98 97 94 Oxygen Delivery Oxygen Flow Rate 12/02/22 03:21 12/02/22 07:41 12/02/22 08:58 Temperature 97.6 F Pulse Rate 83 Respiratory Rate 18 Blood Pressure 123/59 L Pulse Oximetry 96 Oxygen Delivery Room Air Room Air Oxygen Flow Rate 12/02/22 10:15 12/02/22 14:23 Temperature 97.4 F L 99.0 F Pulse Rate 89 95 Respiratory Rate 18 18 Blood Pressure 113/60 110/58 L Pulse Oximetry 99 99 Oxygen Delivery Oxygen Flow Rate Intake/Output Intake/Output: Intake & Output 11/29/22 11/30/22 12/01/22 12/02/22 23:59 23:59 23:59 23:59 Intake Total 2050 530 Output Total 300 200 Balance 1750 330 Meds/Results Medications: Active Medications Generic Name Dose Route Start Last Admin Trade Name Freq PRN Reason Stop Dose Admin Aspirin 81 mg 12/01/22 17:00 12/02/22 08:19 Aspirin 81 Mg Enteric Tablet PO 81 mg BID MARIA DE JESUS Administration Cyclobenzaprine HCl 10 mg 12/01/22 16:38 Cyclobenzaprine Hcl 10 Mg Tablet PO Q8H PRN Spasms Diclofenac Sodium 75 mg 12/01/22 17:00 12/02/22 08:18 Diclofenac Sod 75 Mg Tablet.Ec PO 75 mg BID MARIA DE JESUS Administration Diphenhydramine HCl 25 mg 12/01/22 16:38 Diphenhydramine Hcl Inj 50 Mg/Ml Vial IV PUSH Q6H PRN Itching Hydroxychloroquine Sulfate 200 mg 12/01/22 17:00 12/02/22 08:19 Hydroxychloroquine Sulfate 200 Mg Tablet PO 200 mg BID MARIA DE JESUS Administration Magnesium Oxide 400 mg 12/01/22 18:45 12/02/22 08:19 Magnesium Oxide 400 Mg Tablet PO 400 mg BID MARIA DE JESUS Administration Naloxone HCl 0.1 mg 12/01/22 16:38 Naloxone Hcl 0.4 Mg/Ml Vial IV PUSH Q2M PRN Opiate Reversal Ondansetron HCl 4 mg 12/01/22 16:38 12/02/22 09:15 Ondansetron Inj 4 Mg/2 Ml Vial IV PUSH 4 mg Q4H PRN Administration Nausea And Vomiting Oxycodone HCl 5 mg 12/01/22 16:38 Oxycodone Hcl (*Crx) 5 Mg Tab Ir PO Q4H PRN Pain Rated 4-6 Oxycodone HCl 10 mg 12/01/22 16:38 12/02/22 12:46
[2022-12-02 18:23] VITALS: BP 121/60; PULSE 98; RESP 18; TEMP 37.3; O2SAT 97
[2022-12-02 21:16] VITALS: BP 110/60; PULSE 100; RESP 17; TEMP 36.8; O2SAT 94
[2022-12-02] MEDS: CYCLOBENZAPRINE HCL 10 MG TABLET PO (22:36)
[2022-12-03 04:41] VITALS: BP 100/51; PULSE 80; RESP 17; TEMP 36.9; O2SAT 95
[2022-12-03] MEDS: DICLOFENAC SOD 75 MG TABLET.EC PO (09:05)
[2022-12-03] MEDS: MAGNESIUM OXIDE 400 MG TABLET PO (09:05)
[2022-12-03] MEDS: ROSUVASTATIN 10 MG TABLET PO (09:05)
[2022-12-03] MEDS: ASPIRIN 81 MG ENTERIC TABLET PO (09:05)
[2022-12-03] MEDS: polyethylene glycoL 3350 17 GM POWD.PACK PO (09:06)
[2022-12-03] MEDS: HYDROXYCHLOROQUINE SULFATE 200 MG TABLET PO (09:06)
[2022-12-03] MEDS: predniSONE 5 MG TABLET PO (09:06)
[2022-12-03] MEDS: CHOLECALCIFEROL 1,000 UNITS TABLET 5000 UNITS PO (09:06)
[2022-12-03 09:12] VITALS: RESP 18; O2SAT 95
[2022-12-03] MEDS: SENNA/DOCUSATE SODIUM TABLET 2 TAB PO (09:12)
[2022-12-03] MEDS: PREGABALIN (*CRX) 75 MG CAPSULE 300 MG PO (09:12)
[2022-12-03 11:25] VITALS: BP 116/56; PULSE 73; RESP 18; TEMP 37.1; O2SAT 98
[2022-12-03] MEDS: oxyCODONE HCL (*CRX) 5 MG TAB IR PO (12:48)
== END 2022-12-03 13:35 | disposition home or self-care (01) ==
LOC: ANHSURGERY 15:12 → ANH2MED 15:12
PROVIDERS: Physician Assistant Surgical; Admitting Provider Orthopaedic Surgery; PCP Nurse Practitioner Family; Visit Provider Orthopaedic Surgery
PROC: (CPT 27447; principal; 2022-12-01 12:00)
DX: M17.11 Unilateral primary osteoarthritis, right knee (principal); G89.18 Other acute postprocedural pain; I25.10 Atherosclerotic heart disease of native coronary artery without angina pectoris; E78.00 Pure hypercholesterolemia, unspecified; M47.16 Other spondylosis with myelopathy, lumbar region; G62.9 Polyneuropathy, unspecified; M06.9 Rheumatoid arthritis, unspecified; E66.3 Overweight; Z68.27 Body mass index [BMI] 27.0-27.9, adult; F10.90 Alcohol use, unspecified, uncomplicated; Z87.891 Personal history of nicotine dependence; Z79.82 Long term (current) use of aspirin; Z79.01 Long term (current) use of anticoagulants; Z79.891 Long term (current) use of opiate analgesic; Z79.899 Other long term (current) drug therapy
CPT/HCPCS: 27447; 64447; 36415; 73560; 80048; 85025; 86850; 86900; 86901; 97110; 97116; 97161; 97165; 97530; 97535; A9270; C1713; C1776; G0378; G0379; J0131; J0171; J0690; J1100; J1170; J1885; J2270; J2405; J2704; J2795; J3010; J7030; J7120; J7512

== ENCOUNTER 2023-01-12 12:30 | Outpatient (RCR) | payer MEDICARE, SELFPAY ==
--- NOTE | 2022-12-15 11:08 | PTOPEVAL1 ---
Assessment and note entered by Kait Cleveland, PT, DPT Evaluation Information Assessment Status Evaluation Diagnosis R TKA Onset 12/01/22 Subjective Information Pt states he thinks he is doing really. He states he has pain from his ankle to his hip on the R side. He states he has numbness in his leg from a prior a prior back surgery. He states he has not used pain medications, as he has a poor tolerance to medication. Pt states he enjoys being outdoors and taking care of his home. He ambulates with a single point cane and states this is for his back vs his knee. Reported Pain Level Pain Score 5: Self Report Assessment PT Clinical Summary Douglas presents to therapy today for his initial evaluation following a R TKA on 12/01/22. Today he demonstrates active knee motion from 0 - 8 - 110 deg. He ambulates with a straight cane on the R side, and was educated on proper use of device and ambulates with a significantly decreased gait speed. Skilled therapy services are indicated to treat the deficits related to his TKA, to improve strength and ROM, to return to baseline function, and to promote unlimited functional mobility. Plan of Care PT Services Indicated Yes Treatment Frequency and 2x/wk for 4 wks Duration These treatments will address the objective and functional deficits as defined above. The patient will be advanced safely and appropriately in order for the patient to progress towards his/her prior level of function. Additional exercises will be introduced and as well as a comprehensive home exercise program upon discharge, if needed, ?to ensure carryover of functional gains achieved in the clinic. This treatment plan has been reviewed and agreement upon by the patient.
--- NOTE | 2023-01-12 13:09 | PTOPDC ---
Assessment and note entered by Kait Cleveland, PT, DPT Evaluation Information Assessment Status Discharge Diagnosis R TKA Onset 12/01/22 Subjective Information Pt states his knee feels good and he has no pain. He states his limitations are d/t his back and his L knee. He states his knee still feels tight at times. Pt reports sciatic pain as well. Pt reports at least 75% improvement in overall symptoms. Pt states at this point therapy is a waste of his time. Reported Pain Level Pain Score 0: Self Report Assessment PT Clinical Summary Douglas presents to therapy today for his progress report following 8 visits of skilled therapy to treat his R TKA. Today he demonstrates active knee from from -5 deg to 125 deg. Today he reports no functional limitations d/t his R knee. He has met or progressed towards all of his therapy goals and does not wish to continue at this time. He will be discharged. Plan of Care PT Services Indicated No Treatment Frequency and to be discharged Duration
== END 2023-01-13 10:00 | disposition home or self-care (01) ==
LOC: ANHGOSHPT 12:30
PROVIDERS: PCP Nurse Practitioner Family; Visit Provider Orthopaedic Surgery
DX: Z47.1 Aftercare following joint replacement surgery (principal); Z96.651 Presence of right artificial knee joint
CPT/HCPCS: 97110; 97112; 97140; 97161; 97530

== ENCOUNTER 2023-07-29 11:01 | Outpatient (CLI) | payer MEDICARE, SELFPAY ==
--- NOTE | 2023-07-29 11:36 | ECG_ITS ---
Measurements Intervals [place] Rate: 59 P: 31 MN: 157 QRS: -15 QRSD: 95 T: 4 QT: 390 QTc: 387 Interpretive Statements SINUS BRADYCARDIA NONSPECIFIC T-WAVE ABNORMALITY ABNORMAL ECG COMPARED TO ECG 09/09/2022 09:59:06 SINUS BRADYCARDIA NOW PRESENT Electronically Signed On 07-29-2023 15:43:45 CDT by Emmett Tena M.D.
[2023-07-29 12:03] LABS: Hematocrit 40.3 % (42.0-52.0); Hemoglobin 12.8 g/dL (14.0-18.0)
[2023-07-29 12:04] LABS: Albumin Level 4.5 g/dL (3.5-5.1); Estimated Glomerular Filt Rate 42; Glucose 99 mg/dL (65-110)
[2023-07-29 12:17] LABS: Urine Cotinine NEGATIVE
== END 2023-07-29 11:02 | disposition home or self-care (01) ==
PROVIDERS: PCP Nurse Practitioner Family; Visit Provider Orthopaedic Surgery
DX: M54.9 Dorsalgia, unspecified (principal); E78.5 Hyperlipidemia, unspecified; M17.12 Unilateral primary osteoarthritis, left knee; R20.0 Anesthesia of skin; R94.31 Abnormal electrocardiogram [ECG] [EKG]; R93.1 Abnormal findings on diagnostic imaging of heart and coronary circulation
CPT/HCPCS: 80307; 82040; 82565; 82947; 85014; 85018; 93005

== ENCOUNTER 2023-08-19 07:58 | Outpatient (CLI) | payer MEDICARE, SELFPAY ==
[2023-08-19 19:42] LABS: Albumin Level 4.5 g/dL (3.5-5.1); Anion Gap 6 mmol/L (8-16); Blood Urea Nitrogen 24 mg/dL (9-20); Calcium 9.4 mg/dL (8.4-10.2); Carbon Dioxide 31 mmol/L (22-30); Chloride 103 mmol/L (98-107); Estimated Glomerular Filt Rate 49; Glucose 96 mg/dL (65-110); Phosphorus 3.5 mg/dL (2.5-4.5); Potassium 3.8 mmol/L (3.4-5.0); Sodium 140 mmol/L (137-145)
== END 2023-08-19 07:59 | disposition home or self-care (01) ==
LOC: ANHGOSHLAB 08:00
PROVIDERS: PCP Nurse Practitioner Family; Visit Provider Internal Medicine Nephrology
DX: R79.89 Other specified abnormal findings of blood chemistry (principal)
CPT/HCPCS: 36415; 80069

== ENCOUNTER 2023-10-30 09:36 | Outpatient (CLI) | payer MEDICARE, SELFPAY ==
[2023-10-30 11:22] LABS: Basophils Absolute Auto 0.1 K/mm3 (0.0-0.1); Basophils Percent Auto 1.7 % (0.2-1.2); Eosinophils Absolute Auto 0.5 K/mm3 (0-0.3); Eosinophils Percent Auto 9.3 % (0-4.4); Hematocrit 41.1 % (42.0-52.0); Hemoglobin 12.9 g/dL (14.0-18.0); Immature Granulocyte Absolute 0.01 K/mm3 (0.00-0.031); Immature Granulocyte Percent A 0.2 % (0-0.5); Lymphocytes Absolute Auto 1.95 K/mm3 (0.9-3.2); Lymphocytes Percent Auto 33.4 % (18.3-44.2); Mean Corpuscular HGB Conc 31.4 g/dl (32-36); Mean Corpuscular Hemoglobin 29.3 pg (26-34); Mean Corpuscular Volume 93.2 fl (80-100); Mean Platelet Volume 10.6 fl (7.4-10.4); Monocytes Absolute Auto 0.6 K/mm3 (0.1-0.6); Monocytes Percent Auto 10.3 % (2.6-8.5); Neutrophils Absolute Auto 2.6 K/mm3 (1.3-6.7); Neutrophils Percent Auto 45.1 % (45.5-73.1); Platelet Count Result 230 k/mm3 (150-375); Red Blood Count 4.41 M/mm3 (4.6-6.20); Red Cell Distribution Width 14.9 % (11.5-14.5); White Blood Count 5.8 K/mm3 (4.5-10.0)
[2023-10-30 11:26] LABS: Hemoglobin A1C 5.3 % (<5.7); Urine Cotinine NEGATIVE
[2023-10-30 11:31] LABS: Albumin Level 4.6 g/dL (3.5-5.1); Estimated Glomerular Filt Rate 45; Glucose 89 mg/dL (65-110)
== END 2023-10-30 09:37 | disposition home or self-care (01) ==
LOC: ANHSURGERY 09:42
PROVIDERS: PCP Nurse Practitioner Family; Visit Provider Orthopaedic Surgery
DX: M17.12 Unilateral primary osteoarthritis, left knee (principal); Z01.818 Encounter for other preprocedural examination
CPT/HCPCS: 80307; 82040; 82565; 82947; 83036; 85025; 86850; 86900; 86901; 87081

== ENCOUNTER → 2023-11-06 09:42 | Outpatient (CLI) | payer MEDICARE, SELFPAY ==
--- NOTE | ~2023-11-06 | MR_ITS ---
EXAMINATION: MR lumbar spine wo con DATE: 11/06/2023 10:34 INDICATION: Paresthesias of skin. Low back pain. Bilateral leg numbness and pain. TECHNIQUE: Magnetic resonance imaging (MRI) of the lumbar spine was performed without intravenous con trast. COMPARISON: Lumbar spine MRI 07/14/2013 FINDINGS: There is 7 degrees dextrocurvature of lumbar spine. There is 4 mm anterolisthesis of T11 on T12. There are chronic compression fractures of T11 and T12. There are changes of posterior fusion p rocedure from T12 to S1 with pedicle screws at most levels. There is severely decreased disc height f rom T10-T11 through L5-S1 with interbody fusion at T12-L1, L1-L2, L2-L3, and L4-L5. The conus medulla ris is at L1. There are laminectomies from L1 to L5 with 2.6 x 1.4 x 8.7 cm fluid collection in the s urgical bed, likely a seroma. The following disc levels are specifically discussed: T10-T11: The disc is bulging and has an annular fissure. There is severe bilateral facet joint osteoa rthritis. There is severe bilateral neural foraminal stenosis. There is severe central canal stenosis with ventral and dorsal indentation of the spinal cord. T11-T12: The disc is bulging and has an annular fissure. There is severe bilateral facet joint osteoa rthritis. There is severe bilateral neural foraminal stenosis. There is moderate central canal stenos is with ventral and dorsal indentation of the spinal cord. T12-L1: There is no facet joint hypertrophy. There is mild bilateral neural foraminal stenosis. There is no central canal stenosis. L1-L2: There is moderate bilateral facet joint hypertrophy. There is moderate and mild left neural fo raminal stenosis. There is mild central canal stenosis with posterior decompression. L2-L3: There is moderate bilateral facet joint hypertrophy. There is mild bilateral neural foraminal stenosis. There is mild central canal stenosis with posterior decompression. L3-L4: The disc is bulging. There is mild bilateral facet joint hypertrophy. There is moderate right and mild left neural foraminal stenosis. There is no central canal stenosis. L4-L5: There is severe bilateral facet joint hypertrophy. There is mild bilateral neural foraminal st enosis. There is mild central canal stenosis with posterior decompression. L5-S1: The disc is bulging and has an annular fissure. There is mild bilateral facet joint hypertroph y. There is moderate bilateral neural foraminal stenosis. There is mild central canal stenosis. IMPRESSION: 1. Severe lumbar and thoracic spondylosis including severe central canal stenosis at T10-T11 with cor d compression. 2. Posterior fusion procedure from T12 to S1. Reviewed, dictated and finalized at location E. MILITARY ANALYST IMPRESSION: 1. Severe lumbar and thoracic spondylosis including severe central canal stenos is at T10-T11 with cord compression. 2. Posterior fusion procedure from T12 to S1.
== END ==
PROVIDERS: PCP Nurse Practitioner Family; Visit Provider Nurse Practitioner Family
DX: R20.1 Hypoesthesia of skin (principal); R20.2 Paresthesia of skin; M54.50 Low back pain, unspecified; M47.896 Other spondylosis, lumbar region; M47.894 Other spondylosis, thoracic region; Z98.1 Arthrodesis status
CPT/HCPCS: 72148

== ENCOUNTER 2023-11-17 00:53 | Day surgery (SDC) | payer MEDICARE, SELFPAY ==
--- NOTE | 2023-10-30 09:40 | PC.NURSE ---
PRE-OP INSTRUCTIONS, PLEASE READ CAREFULLY Report to the Outpatient Waiting Room, entrance under the green pavilion located off [facility], at time _1000_ on date _11/09/23_. Planned Procedure Time: _1200_. PACK A SMALL OVERNIGHT BAG AND LEAVE IN THE CAR ALONG WITH YOUR WALKER, ICE MACHINE Time changes happen often and if your time is changed the preop area will call you the afternoon before. - You and your visitor will be asked to self-screen and do not enter if you have any COVID symptoms. - A mask is optional within the hospital at this time. -VISITING HOURS 8AM-8PM Patients may have clear liquids (water, carbonated beverages, clear teas, apple juice) until 3 hours prior to surgery (0900 AM) with a maximum of 20 ounces. - No food from midnight until time of surgery Take the following medications with a SIP of water the morning of surgery: _PREGABALIN, & TRAMADOL, TIZANIDINE IF NEEDED_ DO NOT STOP ANY OF YOUR OTHER PRESCRIPTION MEDICATIONS PRIOR TO SURGERY ?EXCEPT THE FOLLOWING Medications to discontinue per DR. ESCOBAR - _ASPIRIN & DICLOFENAC 7 DAYS PRIOR TO SURGERY, Date to take last dose 11/01/23_ Medications to discontinue per ANESTHESIA -_VITAMINS & SUPPLEMENTS 3 DAYS PRIOR TO SURGERY, Date to take last dose 11/05/23_ Please no make-up, nail senegalese, hairspray, perfume, deodorant, or body powder the day of surgery. No jewelry (including any body piercings) or valuables the day of surgery, leave them at home. Please take a shower or bath the night before, or the morning of, surgery with an antibacterial soap. Wear comfortable, loose fitting clothing. - Jewelry must be removed prior to entering the operating room. Rings and piercings that are not removed may be cut off. - The hospital will not accept responsibility for valuables. - Please leave all valuables, including medications, at home the day of surgery. If you are going home after surgery, a licensed flatbed truck driver must drive you home. - NO public transportation without another adult if you receive anesthesia. - We recommend that an adult stay with you for 24 hours following discharge. - We also recommend that you do not drive, make important decision, drink alcoholic beverages, or take any drugs that were not prescribed by your health care provider for at least 24 hours after your discharge time. Follow any additional instructions given to you from your surgeon. If you or anyone in your household have experienced Covid symptoms in the past week, please notify your surgeon or the nurse liaison at the phone number below for possible testing. Instructions given to _PATIENT_and asked if any additional questions and then verbalized understanding. Patient advised to call surgeon office or pre surgery nurse liaison [phone] if any additional questions.
[2023-10-30 10:08] VITALS: BP 130/76; PULSE 80; RESP 20; TEMP 36.9; O2SAT 99; BMI 27.3
--- NOTE | 2023-11-12 10:48 | PC.NURSE ---
PT CONTACTED, STATES NO CHANGE IN HEALTH HX/MEDS SINCE PRE-OP INTERVIEW - NEW DATE/TIME OF SURGERY GIVEN
--- NOTE | 2023-11-12 10:49 | PC.NURSE ---
Report to the Outpatient Waiting Room, entrance under the green pavilion located off [facility], at time __0830 on date __11/17/23 . Planned Procedure Time: __1030 . Time changes happen often and if your time is changed the preop area will call you the afternoon before. - You and your visitor will be asked to self-screen and do not enter if you have any COVID symptoms. - A mask is optional within the hospital at this time. Patients may have clear liquids (water, carbonated beverages, clear teas, apple juice) until 3 hours prior to surgery (0730 AM) with a maximum of 20 ounces. - No food from midnight until time of surgery - Infants may have breast milk until 4 hours before surgery, formula 6 hours prior to surgery. - Children will be allowed to drink immediately following surgery. If applicable, please bring a bottle or sippy cup to assist with drinking. Juice, water, soda, and popsicles are readily available. For infants on formula, please bring formula the day of surgery. Pacifiers are allowed. Take the following medications with a SIP of water the morning of surgery: __PREGABALIN, & TRAMADOL, TIZANIDINE IF NEEDED_ DO NOT STOP ANY OF YOUR OTHER PRESCRIPTION MEDICATIONS PRIOR TO SURGERY ?EXCEPT THE FOLLOWING Medications to discontinue per physician __LAST DOSE OF ASA & DICLOFENAC 11/01/23, VITAMINS & SUPPLEMENTS 11/05/23 CONFIRMED WITH PT_ Please no make-up, nail mauritanian, hairspray, perfume, deodorant, or body powder the day of surgery. No jewelry (including any body piercings) or valuables the day of surgery, leave them at home. Please take a shower or bath the night before, or the morning of, surgery with an antibacterial soap. Wear comfortable, loose fitting clothing. Children are encouraged to wear pajamas. - Jewelry must be removed prior to entering the operating room. Rings and piercings that are not removed may be cut off. - The hospital will not accept responsibility for valuables. - Please leave all valuables, including medications, at home the day of surgery. If you are going home after surgery, a licensed cdl truck driver must drive you home. - NO public transportation without another adult if you receive anesthesia. - We recommend that an adult stay with you for 24 hours following discharge. - We also recommend that you do not drive, make important decision, drink alcoholic beverages, or take any drugs that were not prescribed by your health care provider for at least 24 hours after your discharge time. For Pediatric surgeries, we recommend two adults accompany the child home. Follow any additional instructions given to you from your surgeon. If you or anyone in your household have experienced Covid symptoms in the past week, please notify your surgeon or the nurse liaison at the phone number below for possible testing. Telephone instructions given to ____PT and asked if any additional questions and then verbalized understanding. Patient advised to call surgeon office or pre surgery nurse liaison [phone] if any additional questions.
[2023-11-17] VITALS (11 sets, daily range): BP systolic 121–153; BP diastolic 67–86; PULSE 64–99; RESP 8–18; TEMP 36.2; O2SAT 94–100
--- NOTE | ~2023-11-17 | XR_ITS ---
XR_[id number]_CR DATE: 11/17/2023 16:33 INDICATION: Left total knee replacement TECHNIQUE: Postoperative AP and crosstable lateral views of left knee COMPARISON: None FINDINGS: There is expected subcutaneous and intra-articular emphysema following left total knee arth roplasty. There is normal alignment of the components of the left total knee arthroplasty with patellar resurfa cing. No fracture or dislocation, periosteal reaction or bone destruction. IMPRESSION: Status post left total knee arthroplasty with patellar resurfacing Reviewed, dictated and finalized at [facility]. Reviewed, dictated and finalized at location [facility]. E CURATOR
[2023-11-17] MEDS: ACETAMINOPHEN 500 MG TABLET 1000 MG PO (08:45)
[2023-11-17] MEDS: LACTATED RINGERS 1,000 ML 30 ML IV CONT (09:12)
--- NOTE | 2023-11-17 10:02 | WPDANESEPPF ---
Anes - Initial Pre Proc Eval Procedure: Operation Date: 11/17/23 10:30 Proposed Procedures p Left Custom Total Knee Arthroplasty - Norberto Craft MD Date/Time: 11/17/23 10:02 Surgeon: Norberto Craft MD Pre Op Diagnosis: Prim O A Lt Knee Patient Data Age: 78 Gender: M Height: 1.7 m Weight: 77.2 kg Last Vital Signs Temp 97.2 F L 11/17/23 09:12 Pulse 64 11/17/23 09:12 Resp 16 11/17/23 09:12 BP 126/67 11/17/23 09:12 Pulse Ox 99 11/17/23 09:12 O2 Del Method Room Air 11/17/23 09:12 Allergies Allergy/AdvReac Type Severity Reaction Status Date / Time No Known Allergies Allergy Verified 11/17/23 08:29 Home Medications Medication Instructions Recorded Confirmed Type diclofenac sodium 75 mg 75 mg PO BID 12/14/19 11/17/23 History tablet,delayed release rosuvastatin 10 mg tablet (Crestor) 10 mg PO DAILY 12/14/19 11/17/23 History magnesium oxide 420 mg tablet 420 mg PO BID 11/05/22 11/17/23 History pregabalin 300 mg capsule 300 mg PO BID 11/05/22 11/17/23 History tizanidine 4 mg capsule 4 mg PO Q8H PRN Pain 11/05/22 11/17/23 History tramadol 50 mg tablet 50 mg PO Q12-24H PRN Pain 11/05/22 11/17/23 History zinc 25 mg tablet 25 mg PO DAILY 11/05/22 11/17/23 History ascorbic acid (vitamin C) 1,000 mg 1 g PO DAILY 10/30/23 11/17/23 History tablet (Vitamin C) aspirin 81 mg capsule 81 mg PO HS 10/30/23 11/17/23 History cholecalciferol (vitamin D3) 1 tab-cap DAILY 10/30/23 11/17/23 History hydroxychloroquine 200 mg tablet 200 mg PO BID 10/30/23 11/17/23 History pantoprazole 40 mg tablet,delayed 40 mg PO BID 10/30/23 11/17/23 History release aspirin 81 mg tablet,delayed 81 mg PO BID 14 days #28 tabs 11/17/23 Rx release oxycodone-acetaminophen 5 mg-325 1 - 2 tablet PO Q4-6H PRN pain #30 11/17/23 Rx mg tablet tabs prednisone 5 mg tablet 5 mg PO DAILY 3 weeks #21 tabs 11/17/23 Rx Laboratory Tests 11/17/23 08:44 Blood Type A Positive Antibody Screen Pending Results Review: All pre-operative results and documents have been reviewed as part of the pre-operative evaluation. [facility] Past Medical History Medical History Arthritis (Unknown) CAD (coronary artery disease) has one stent in place High cholesterol Hyperlipidemia (Unknown) Lumbar spondylosis with myelopathy Peripheral neuropathy Rheumatoid arthritis Surgical History Surgical History H/O hernia repair 06/06/2020 History of back surgery x4 pins and rods placed History of total right knee replacement (~12/01/22) Family History Family History Mother Family history of malignant neoplasm of breast in first degree relative Other Family history of cardiovascular disease Social History Social History (Updated 10/30/23 @ 09:08 by Ursula Gilliland) Smoking packs per day: 0.5 Smoking cigarettes per day: 10.0 Years smoked: 19 Smoking pack-years: 9.50 Smoking status: Former smoker Tobacco type: cigarettes Second hand tobacco smoke exposure: No Smoking end date: 04/18/85 Additional smoking assessment comments: PT DENIES ALL FORMS OF TOCBACCO USE Alcohol intake: current Drinks per week: 18 Alcohol use details: BEERS 1-2 DAY Substance use: never Substance use type: does not use Other substance usage details: on opiate pain medslyrica and tizandine prescriptions for chronic back pain Do You Feel Safe in your Home?: Yes Lack of Transportation: No Lack of Food: Never True Current Housing: I Have Housing Concerned About Future Housing: No Difficulty Paying Gas/Electric Bills: No Difficulty Paying for Meds: No Currently Unemployed: No Education: High School Diploma/GED Difficulty w/ Childcare or Family Care: No Living arrangements: alone Additional living arrangements comments: W
--- NOTE | 2023-11-17 10:20 | WPDHPUPDATE1 ---
History and Physical Update Update Date/Time: 11/17/23 10:20 History and Physical has been reviewed, including an updated exam of the patient. There are NO changes in the patient's condition. Risks, benefits, and alternatives have been discussed and questions answered. Patient agrees to proceed with procedure.
--- NOTE | 2023-11-17 10:24 | WPDANESEPPF ---
Anes - Initial Pre Proc Eval Procedure: Operation Date: 11/17/23 10:30 Proposed Procedures p Left Custom Total Knee Arthroplasty - Norberto Craft MD Date/Time: 11/17/23 10:24 Surgeon: Norberto Craft MD Pre Op Diagnosis: Prim O A Lt Knee Patient Data Age: 78 Gender: M Height: 1.7 m Weight: 77.2 kg Last Vital Signs Temp 36.2 C L 11/17/23 09:12 Pulse 64 11/17/23 09:12 Resp 16 11/17/23 09:12 BP 126/67 11/17/23 09:12 Pulse Ox 99 11/17/23 09:12 O2 Del Method Room Air 11/17/23 09:12 Allergies Allergy/AdvReac Type Severity Reaction Status Date / Time No Known Allergies Allergy Verified 11/17/23 08:29 Home Medications Medication Instructions Recorded Confirmed Type diclofenac sodium 75 mg 75 mg PO BID 12/14/19 11/17/23 History tablet,delayed release rosuvastatin 10 mg tablet (Crestor) 10 mg PO DAILY 12/14/19 11/17/23 History magnesium oxide 420 mg tablet 420 mg PO BID 11/05/22 11/17/23 History pregabalin 300 mg capsule 300 mg PO BID 11/05/22 11/17/23 History tizanidine 4 mg capsule 4 mg PO Q8H PRN Pain 11/05/22 11/17/23 History tramadol 50 mg tablet 50 mg PO Q12-24H PRN Pain 11/05/22 11/17/23 History zinc 25 mg tablet 25 mg PO DAILY 11/05/22 11/17/23 History ascorbic acid (vitamin C) 1,000 mg 1 g PO DAILY 10/30/23 11/17/23 History tablet (Vitamin C) aspirin 81 mg capsule 81 mg PO HS 10/30/23 11/17/23 History cholecalciferol (vitamin D3) 1 tab-cap DAILY 10/30/23 11/17/23 History hydroxychloroquine 200 mg tablet 200 mg PO BID 10/30/23 11/17/23 History pantoprazole 40 mg tablet,delayed 40 mg PO BID 10/30/23 11/17/23 History release aspirin 81 mg tablet,delayed 81 mg PO BID 14 days #28 tabs 11/17/23 Rx release oxycodone-acetaminophen 5 mg-325 1 - 2 tablet PO Q4-6H PRN pain #30 11/17/23 Rx mg tablet tabs prednisone 5 mg tablet 5 mg PO DAILY 3 weeks #21 tabs 11/17/23 Rx Laboratory Tests 11/17/23 08:44 Blood Type A Positive Antibody Screen Pending Patient hx anesthesia problems: none Family hx anesthesia problems: none Results Review: All pre-operative results and documents have been reviewed as part of the pre-operative evaluation. [facility] Past Medical History Medical History Arthritis (Unknown) CAD (coronary artery disease) has one stent in place High cholesterol Hyperlipidemia (Unknown) Lumbar spondylosis with myelopathy Peripheral neuropathy Rheumatoid arthritis Surgical History Surgical History H/O hernia repair 06/06/2020 History of back surgery x4 pins and rods placed History of total right knee replacement (~12/01/22) Family History Family History Mother Family history of malignant neoplasm of breast in first degree relative Other Family history of cardiovascular disease Social History Social History Smoking packs per day: 0.5 Smoking cigarettes per day: 10.0 Years smoked: 19 Smoking pack-years: 9.50 Smoking status: Former smoker Tobacco type: cigarettes Second hand tobacco smoke exposure: No Smoking end date: 04/18/85 Additional smoking assessment comments: PT DENIES ALL FORMS OF TOCBACCO USE Alcohol intake: current Drinks per week: 18 Alcohol use details: BEERS 1-2 DAY Substance use: never Substance use type: does not use Other substance usage details: on opiate pain medslyrica and tizandine prescriptions for chronic back pain Do You Feel Safe in your Home?: Yes Lack of Transportation: No Lack of Food: Never True Current Housing: I Have Housing Concerned About Future Housing: No Difficulty Paying Gas/Electric Bills: No Difficulty Paying for Meds: No Currently Unemployed: No Education: High School Diploma/GED Difficulty w/ Child
[2023-11-17] MEDS: ceFAZolin 2 GM/D5W 50 ML 2 GM/50 ML BAG IVPB (10:58)
--- NOTE | 2023-11-17 10:59 | WPDANESPNB ---
Anes - Peripheral Nerve Block Date/Time: 11/17/23 10:59 I have discussed with the patient/family/POA the placement of a peripheral nerve block for post-operative pain management, including associated risks, benefits, complications, and side effects. Alternative methods of post-operative analgesia were detailed. Questions were solicited and answers provided to the satisfaction of the patient/family/POA. Time-Out: A pre-procedural Time-Out was completed immediately before starting the procedure and confirmed: Patient Identification, Site, Procedure, Patient Position and the Availability of Requisite Equipment. Clinical Indications: Acute post-operative pain management requested by the operative surgeon. Nerve Block Insertion Note Anes-nerve block: adductor canal left Patient position: supine Skin prep: chlorhexidine Needle: 22 gauge, stimulating, insulated echogenic needle. Needle length: 80 mm Technique: ultrasound Technique comment: fent 100mcg Injectate: bupivacaine 0.5% with epi 5 mcg/ml (30ml no epi) and dexamethasone (mg) (4) Observations: tolerated well Complications: none Procedure start time:: 1046 Procedure end time:: 1052
[2023-11-17] MEDS: fentaNYL CITRATE INJ (*CRX) 100 MCG/2 ML VIAL 25 MCG IV PUSH (13:44)
[2023-11-17] MEDS: oxyCODONE HCL (*CRX) 5 MG TAB IR PO (15:02)
--- NOTE | 2023-11-17 15:02 | SUR.PHASEII ---
MEAL ORDERED; PHYSICAL THERAPIST COMING TO WORK WITH PATIENT.
--- NOTE | 2023-11-17 15:08 | SUR.PHASEII ---
DR. ESCOBAR HERE TO SPEAK TO PATIENT.
--- NOTE | 2023-11-17 15:26 | SUR.PHASEII ---
PHYSICAL THERAPIST HERE TO WORK WITH PATIENT.
--- NOTE | 2023-11-17 16:13 | W.PM.PROC2 ---
Procedure Note - Detailed Date of Procedure 11/17/23 Pre-op Diagnosis Prim O A Lt Knee Post-op Diagnosis Same Procedure Performed Total knee arthroplasty, left. Surgeon Norberto Craft MD Anesthesia General and Regional (Subsartorial block.) Findings Severe tricompartment disease with mild valgus deformity. Good bone quality. No significant releases required. Standard bony resections with the patient specific instruments. Description of Procedure Preoperative antibiotics were given. The limb was prepped and draped in the usual sterile fashion with a well-padded tourniquet high on the thigh. The limb was exsanguinated and the tourniquet inflated to 300 mmHg. A longitudinal incision was created just medial to the patella. A trivector approach to the knee was performed. Arthrotomy was taken down through the joint capsule. No significant releases were initially taken. The femur was exposed and the F1 jig was applied. The coring tool was used to remove the cartilage for the F2 jig to sit flush with the bone. The jig was pinned and the distal cut carefully taken. Caliper measurements confirmed appropriate bony resections according to the preoperative templated plan. The F4 cutting jig for the femur was applied, at the standard rotation. The AP and anterior chamfer cuts were taken. The F5 jig was applied and the posterior chamfer cuts were taken. The tibia was prepared using the T1 jig, after removing cartilage for the jig contact points. Proper alignment was checked with the alignment zenobia. The tibia was cut using the T1u guide. Gap balancing was performed. Gap measurements were taken and the knee was trialed. Excellent alignment and soft tissue balancing was confirmed. The posterior cruciate ligament was recessed along the proximal tibia. The patella was cut for resurfacing. Three lug holes were drilled. Meniscal remnants were removed. The trial components were assembled. Excellent range of motion and proper soft tissue balancing were confirmed throughout the full range of motion. Patellar tracking was excellent. The knee was copiously irrigated periodically throughout the procedure. The real implants were cemented into position. Excess cement was carefully removed. The wound was closed in layers with interrupted #1 Vicryl suture, #2 strata fix suture, 2-0 strata fix suture, 3-0 strata fix suture. Steri-Strips placed on the skin with the knee flexed. Sterile bulky dressing applied. The patient was brought to the recovery room in stable condition. There were no complications. Implants [employer] total knee arthroplasty. Cemented. Cruciate retaining. 7 mm insert. 41 mm oval patella. Estimated Blood Loss 100 Drains No Complications No immediate complications Condition Stable Disposition PACU [facility] Billing Surgery - Charge Forward: Surgery Billing
--- NOTE | 2023-11-17 16:53 | SUR.PHASEII ---
1630 PORTABLE XRAY OF LEFT KNEE DONE.
== END 2023-11-17 16:50 | disposition home or self-care (01) ==
PROVIDERS: PCP Nurse Practitioner Family; Visit Provider Orthopaedic Surgery
PROC: (CPT 27447; principal; 2023-11-17 10:30)
DX: M17.12 Unilateral primary osteoarthritis, left knee (principal); I25.10 Atherosclerotic heart disease of native coronary artery without angina pectoris; E78.00 Pure hypercholesterolemia, unspecified; M06.9 Rheumatoid arthritis, unspecified; G62.9 Polyneuropathy, unspecified; M47.16 Other spondylosis with myelopathy, lumbar region; G89.29 Other chronic pain; Z79.82 Long term (current) use of aspirin; Z95.5 Presence of coronary angioplasty implant and graft; Z87.891 Personal history of nicotine dependence; Z79.891 Long term (current) use of opiate analgesic
CPT/HCPCS: 27447; 36415; 73560; 80307; 82040; 82565; 82947; 83036; 85025; 86850; 86900; 86901; 87081; 97110; 97161; 97165; 97530; 97535; A9270; C1713; C1776; J0171; J0690; J1100; J1170; J1885; J2270; J2405; J2704; J2795; J3010; J7120

== ENCOUNTER 2023-12-21 08:04 | Outpatient (CLI) | payer MEDICARE, SELFPAY ==
[2023-12-21 19:56] LABS: Albumin Level 4.4 g/dL (3.5-5.1); Anion Gap 8 mmol/L (8-16); Blood Urea Nitrogen 28 mg/dL (9-20); Calcium 9.1 mg/dL (8.4-10.2); Carbon Dioxide 29 mmol/L (22-30); Chloride 102 mmol/L (98-107); Estimated Glomerular Filt Rate 59; Glucose 77 mg/dL (65-110); Phosphorus 3.7 mg/dL (2.5-4.5); Sodium 139 mmol/L (137-145)
[2023-12-21 20:35] LABS: Cholesterol 147 mg/dL (0-200); HDL Direct 94 mg/dL; Triglycerides 78 mg/dL (<150)
[2023-12-21 20:43] LABS: Creatinine Urine 102.6 mg/dL
[2023-12-21 20:47] LABS: LDL Cholesterol Direct 46 mg/dL
[2023-12-21 21:09] LABS: Total Protein Urine Random < 5 mg/dL; Ur Ttl Prot Creatinine Ratio < 0.05 mg/mg (0-0.20)
== END 2023-12-21 08:05 | disposition home or self-care (01) ==
PROVIDERS: Internal Medicine Nephrology; PCP Nurse Practitioner Family; Visit Provider Nurse Practitioner Family
DX: R79.89 Other specified abnormal findings of blood chemistry (principal); E78.2 Mixed hyperlipidemia; I25.10 Atherosclerotic heart disease of native coronary artery without angina pectoris; M46.96 Unspecified inflammatory spondylopathy, lumbar region
CPT/HCPCS: 36415; 80061; 80069; 82570; 84156

== ENCOUNTER 2024-01-27 11:00 | Outpatient (RCR) | payer MEDICARE, SELFPAY ==
--- NOTE | 2023-11-23 13:30 | OPREHPOC ---
Outpatient Therapy Plan of Care This is a Multidisciplinary Plan of Care that may contain components documented by all disciplines (PT, OT, and ST.) PT Problem 1 PT Problem #1 Knowledge Deficit PT Goal 1 Goal 1. Patient will perform independent HEP Target Visit 4 PT Problem 2 PT Problem #2 Pain PT Goal 1 Goal 1. Patient will be able to do all typical ADL's with pain no higher than 2/10 in his knee Target Visit 8 PT Problem 3 PT Problem #3 Impaired Gait PT Goal 1 Goal 1. Patient able to ambulate more than 250 feet on 2 minute walk test to improve home and community ambulation Target Visit 8 PT Problem 4 PT Problem #4 Impaired Range of Motion PT Goal 1 Goal 1. Improve left knee extension to 0 to normalize gait pattern 2. Improve left knee flexion to 120 for stair navigation Target Visit 8 PT Problem 5 PT Problem #5 Impaired Strength PT Goal 1 Goal 1. Improve L LE to 5/5 in all planes to return to ADL's Target Visit 8
--- NOTE | 2023-11-23 13:31 | PTOPEVAL1 ---
Assessment and note entered by Yessica Palacios DPT Evaluation Information Assessment Status Evaluation Subjective Information Pt is s/p L TKA on 11/09/23. Highest pain recently 6/10 and lowest 2-3/10. Using 1 cane currently, used 1 some of the time prior to the surgery. Pt is getting assistance to care for his animals and with his typical cooking and cleaning. Staying with family at the moment, does have a few stairs at his home to navigate. Dressing and bathing independently. Pt is not yet driving. Patient goal: get back to working around the house , usually lives independently in [place]. Also reports sciatic issues. Reported Pain Level Pain Score 6: Self Report Assessment PT Clinical Summary The patient is presenting to skilled therapy s/p L TKA on 11/09/23. He presents with decreased LE range of motion, decreased strength, and gait impairments which are contributing to his pain and difficulty performing his typical household activities and caring for his animals. He will benefit from therapy to address these impairments in order to return to prior level of function. Plan of Care Interventions Electrical Stimulation,Gait Training,Hot Pack/Cold Pack,Manual Therapy,Neuro Re-education,Patient/ Caregiver Education,Therapeutic Activities, Therapeutic Exercise PT Services Indicated Yes Treatment Frequency and 2 times a week for 8 visits Duration These treatments will address the objective and functional deficits as defined above. The patient will be advanced safely and appropriately in order for the patient to progress towards his/her prior level of function. Additional exercises will be introduced and as well as a comprehensive home exercise program upon discharge, if needed, ?to ensure carryover of functional gains achieved in the clinic. This treatment plan has been reviewed and agreement upon by the patient.
--- NOTE | 2023-12-18 08:55 | PCPTNOTE ---
Patient called & cancelled scheduled appointment this date, no reason given.
--- NOTE | 2023-12-21 14:06 | OPREHPOC ---
Outpatient Therapy Plan of Care This is a Multidisciplinary Plan of Care that may contain components documented by all disciplines (PT, OT, and ST.) PT Problem 1 PT Problem #1 Knowledge Deficit PT Goal 1 Goal 1. Patient will perform independent HEP Target Visit 4 Progress Met PT Problem 2 PT Problem #2 Pain PT Goal 1 Goal 1. Patient will be able to do all typical ADL's with pain no higher than 2/10 in his knee NEW GOAL 12/21/23 2. Patient able to sit 30 minutes with back pain no higher than 6/[address] to appointments Target Visit 15 Progress Partially Met Comment 1. met 2. new PT Problem 3 PT Problem #3 Impaired Gait PT Goal 1 Goal 1. Patient able to ambulate more than 250 feet on 2 minute walk test to improve home and community ambulation Target Visit 8 Progress Met PT Problem 4 PT Problem #4 Impaired Range of Motion PT Goal 1 Goal 1. Improve left knee extension to 0 to normalize gait pattern 2. Improve left knee flexion to 120 for stair navigation Target Visit 8 Progress Partially Met Comment 1. 5+ 2. met PT Problem 5 PT Problem #5 Impaired Strength PT Goal 1 Goal 1. Improve L LE to 5/5 in all planes to return to ADL's Target Visit 15 Progress Partially Met Comment continue for back pain as well
--- NOTE | 2023-12-21 14:06 | PTOPREEVAL ---
Assessment and note entered by Yessica Palacios DPT Evaluation Information Assessment Status Re-evaluation Subjective Information Pt reports no knee pain in the last week. States he wants to be discharged for his knee as he is having no functional limitations, now has orders for back pain. Highest back pain in the last week 09/27 and 03/28. N/t from his knees down henry. Pain increases with sitting, walking, and standing. Only really reports relief from laying down. Has been using a cane for about a year. Reports he sees a back surgeon next week. Takes lyrica. Five previous back surgeries, most recent in 2017. No PT before or after any prior surgery, states he was told it would not help. Pain for years but it has recently worsened. Patient goal: decrease pain, numbness, be able to do activities without pain Reported Pain Level Pain Score 0,6: Self Report Assessment PT Clinical Summary The patient reports no pain in his knee in the last week and no functional limitations due to his knee. He demonstrates greatly improved range of motion, improved strength, improved walking speed and can navigate stairs reciprocally. Due to his progress, his knee will be discharged this visit. The patient also presents to therapy with back pain and a diagnosis of L5-S1 nonunion and thoracic kyphosis. He presents with decreased core and LE strength, decreased flexibility, and postural impairments which are contributing to his pain with walking, standing, and sitting. He will benefit from therapy to address these impairments in order to safely reduce pain and improve function. Plan of Care Interventions Electrical Stimulation,Gait Training,Hot Pack/Cold Pack,Manual Therapy,Neuro Re-education,Patient/ Caregiver Education,Therapeutic Activities, Therapeutic Exercise PT Services Indicated Yes Treatment Frequency and 1-2 times a week for 10 visits Duration These treatments will address the objective and functional deficits as defined above. The patient will be advanced safely and appropriately in order for the patient to progress towards his/her prior level of function. Additional exercises will be introduced and as well as a comprehensive home exercise program upon dis
--- NOTE | 2024-01-27 11:32 | OPREHPOC ---
Outpatient Therapy Plan of Care This is a Multidisciplinary Plan of Care that may contain components documented by all disciplines (PT, OT, and ST.) PT Problem 1 PT Problem #1 Knowledge Deficit PT Goal 1 Goal 1. Patient will perform independent HEP Target Visit 4 Progress Met PT Problem 2 PT Problem #2 Pain PT Goal 1 Goal 1. Patient will be able to do all typical ADL's with pain no higher than 2/10 in his knee NEW GOAL 12/21/23 2. Patient able to sit 30 minutes with back pain no higher than 6/[address] drive to appointments Target Visit 15 Progress Partially Met Comment 1. met 2. not met PT Problem 3 PT Problem #3 Impaired Gait PT Goal 1 Goal 1. Patient able to ambulate more than 250 feet on 2 minute walk test to improve home and community ambulation Target Visit 8 Progress Met PT Problem 4 PT Problem #4 Impaired Range of Motion PT Goal 1 Goal 1. Improve left knee extension to 0 to normalize gait pattern 2. Improve left knee flexion to 120 for stair navigation Target Visit 8 Progress Partially Met Comment 1. 5+ 2. met PT Problem 5 PT Problem #5 Impaired Strength PT Goal 1 Goal 1. Improve L LE to 5/5 in all planes to return to ADL's Target Visit 15 Progress Partially Met Comment no change to hip flexion and abduction
--- NOTE | 2024-01-27 11:32 | PTOPDC ---
Assessment and note entered by Yessica Palacios DPT Evaluation Information Assessment Status Discharge Subjective Information Highest pain 12/10 and lowest 5/10. Still getting pain down his legs. Reports his pain still feels the same as when he started therapy. Continues to do his ADL's with pain. Saw his back surgeon Thursday and was sent to pain management for an injection and will be getting a myelogram. Reported Pain Level Pain Score 7: Self Report Assessment PT Clinical Summary The patient has reached a plateau in progress at this time. He continues to report the same pain and functional level. He demonstrates an increased gait speed on the 2 minute walk test but continued significant gait impairments, decreased strength, and flexibility impairments. He will be discharged from therapy this date with education to follow up with MD. Plan of Care PT Services Indicated No
== END 2024-01-27 14:32 | disposition home or self-care (01) ==
LOC: ANHGOSHPT 11:00
PROVIDERS: PCP Nurse Practitioner Family; Visit Provider Orthopaedic Surgery
DX: Z47.1 Aftercare following joint replacement surgery (principal); Z96.652 Presence of left artificial knee joint
CPT/HCPCS: 97016; 97110; 97112; 97140; 97161; 97530